=== PATIENT | female | born 1960 | race Caucasian/White ===

== ENCOUNTER 2018-03-25 13:46 | Outpatient (CLI) | payer BC | END 2018-03-25 13:47 | disposition home or self-care (01) | LOC: BICMAMMO 13:46 | PROVIDERS: ATTEND Family Medicine | DX: Z12.31 Encounter for screening mammogram for malignant neoplasm of breast (principal); Z80.3 Family history of malignant neoplasm of breast | CPT/HCPCS: 77063; 77067 ==

== ENCOUNTER 2018-07-16 08:55 | Outpatient (CLI) | payer BC ==
--- NOTE | 2018-07-16 09:44 | RAD ---
ABDOMEN 1 VIEW: HISTORY: M20.0, renal stone. COMPARISON: CT abdomen and pelvis 08/02/17. FINDINGS: There are right upper quadrant surgical clips. No abnormal calcification projecting over the ureters . No abnormal calcifications are seen projecting over the renal shadows. Mild dextroscoliosis. IMPRESSION: 1. No abnormal calcification projecting over the renal shadows. 2. Lumbosacral transitional vertebrae. POS: [facility]
== END 2018-07-16 08:56 | disposition home or self-care (01) ==
LOC: RAD 08:55
PROVIDERS: ATTEND Urology
DX: N20.0 Calculus of kidney (principal)
CPT/HCPCS: 74018

== ENCOUNTER 2018-08-06 12:57 | Outpatient (CLI) | payer BC | END 2018-08-06 12:58 | disposition home or self-care (01) | LOC: BICULT 12:57 | PROVIDERS: ATTEND Urology | DX: N20.0 Calculus of kidney (principal); N28.1 Cyst of kidney, acquired; R93.422 Abnormal radiologic findings on diagnostic imaging of left kidney | CPT/HCPCS: 74018; 76770 ==

== ENCOUNTER 2019-01-16 08:56 | Outpatient (CLI) | payer BC ==
--- NOTE | 2019-01-16 10:34 | RAD ---
SUPINE ABDOMEN: INDICATION: Renal stones. COMPARISON: 07/16/2018. FINDINGS: Scattered stool and gas throughout the colon. Small bowel gas pattern is unremarkable. A faint calc ification in the left pelvis was present on 08/06/2018 and is probably vascular. No other abnormal ca lcification seen. Post cholecystectomy clips noted. Degenerative spine changes with scoliotic curva ture again noted. IMPRESSION: Unremarkable exam. POS: [facility]
== END 2019-01-16 08:57 | disposition home or self-care (01) ==
LOC: BICRAD 08:56
PROVIDERS: ATTEND Urology
DX: N20.0 Calculus of kidney (principal)
CPT/HCPCS: 74018; 81001; 88112

== ENCOUNTER 2019-02-13 11:00 | Outpatient (CLI) | payer BC ==
--- NOTE | 2019-02-13 13:17 | CT ---
CT OF THE ABDOMEN AND PELVIS WITH AND WITHOUT CONTRAST: INDICATION: Gross hematuria. CONTRAST: 70 cc of Isovue 370. FINDINGS: There is a 2 mm nonobstructing calculus within the superior pole of the left kidney which is new. Th ere is a stable 2 mm left mid renal nonobstructing calculus. No hydronephrosis is evident. No gross ureteral calculus is evident. The bladder is largely decompressed. There are multiple small cysts bilaterally. The largest is seen within the right mid kidney measurin g 3.5 cm slightly larger than on a comparison 08/02/2017 where it measured 3.1 cm. The largest cyst w ithin the left kidney is seen within the lower pole measuring 1.1 cm. No gross urothelial lesion is evident within the segmentally opacified renal collecting system. The lung bases are clear. No focal hepatic lesion is evident. The gallbladder is surgically absent. Pancreas, adrenal glands, and spleen appear within normal limits. There is a moderate amount of retained stool within the colon. There is a normal appendix in the rig ht lower quadrant. The uterus is not visualized and may be surgically absent. The rectum and perirectal soft tissues ar e unremarkable. There is dextroscoliosis of the lumbar spine. No acute osseous abnormality is evide nt. IMPRESSION: 1. No solid renal lesion, ureteral calculus, hydronephrosis, or gross urothelial lesion is evident. 2. Bilateral renal cysts. Left nephrolithiasis. 3. Moderate amount of retained stool within the colon. 4. Cholecystectomy. 5. Other chronic findings as above. POS: [facility]
[2019-02-13] MEDS ORDERED: ISOVUE-370 76%-LOCM 1 ML ONE (15:27)
== END 2019-02-13 11:01 | disposition home or self-care (01) ==
LOC: BICCT 11:00
PROVIDERS: ATTEND Urology
DX: R31.0 Gross hematuria (principal); N20.0 Calculus of kidney; N28.1 Cyst of kidney, acquired; K59.00 Constipation, unspecified; M41.9 Scoliosis, unspecified; Z90.49 Acquired absence of other specified parts of digestive tract
CPT/HCPCS: 74178; Q9966

== ENCOUNTER 2019-04-24 15:00 | Outpatient (CLI) | payer BC ==
--- NOTE | 2019-04-24 15:44 | MMO ---
Bilateral MAMMO Bilat Screen [facility]. CLINICAL HISTORY: Patient is 58 years old and is seen for screening. The patient has the following family history of breast cancer: paternal aunt, malignant (generic). The patient has no personal history of cancer. VIEWS: The views performed were: bilateral craniocaudal with tomosynthesis and bilateral mediolateral oblique with tomosynthesis. FILMS COMPARED: The present examination has been compared to prior imaging studies performed at [facility] on 04/15/2008 and 03/25/2018, and at [facility] on 02/03/2001 and 02/12/2001. MAMMOGRAM FINDINGS: The breasts are heterogeneously dense, which could obscure a lesion on mammography. There are no suspicious masses, suspicious calcifications, or new areas of architectural distortion. IMPRESSION: THERE IS NO MAMMOGRAPHIC EVIDENCE OF MALIGNANCY. A ROUTINE FOLLOW-UP MAMMOGRAM IN 1 YEAR IS RECOMMENDED. THE RESULTS OF THIS EXAM WERE SENT TO THE PATIENT. ACR BI-RADS Category 1 - Negative MAMMOGRAPHY NOTE: 1. A negative mammogram report should not delay a biopsy if a dominant of clinically suspicious mass is present. 2. Approximately 10% to 15% of breast cancers are not detected by mammography. 3. Adenosis and dense breasts may obscure an underlying neoplasm.
== END 2019-04-24 15:01 | disposition home or self-care (01) ==
LOC: BICMAMMO 15:00
PROVIDERS: ATTEND Family Medicine
DX: Z12.31 Encounter for screening mammogram for malignant neoplasm of breast (principal); Z80.3 Family history of malignant neoplasm of breast
CPT/HCPCS: 77063; 77067

== ENCOUNTER 2019-07-01 08:55 | Outpatient (CLI) | payer BC ==
[2019-07-01 09:59] LABS: Hemoglobin 13.7 g/dL (12.0-16.0); Mean Corpuscular HGB CONC 34.7 g/dL (32.0-36.0); Mean Corpuscular Hemoglobin 34.7 pg (27.0-31.0); Mean Platelet Volume 7.4 fL (7.4-10.4); Platelet Count 190 thou/uL (130-400); Red Blood Cell (RBC) Count 3.95 mill/uL (4.20-5.40); White Blood Cell (WBC) Count 9.6 thou/uL (4.8-10.8)
[2019-07-01 10:18] LABS: Anion Gap 12 mmol/L (10-20); BUN (Urea Nitrogen) 16 mg/dL (9.8-20.1); Calc. Creatinine Clearance 0 mL/min (70-130); Carbon Dioxide 26 mmol/L (22-29); Chloride 103 mmol/L (98-107); Estimated GFR-MDRD 87; Glucose 89 mg/dL (70-105); Potassium 3.9 mmol/L (3.5-5.1); Sodium 137 mmol/L (136-145)
== END 2019-07-01 08:56 | disposition home or self-care (01) ==
LOC: LABBT 08:55
PROVIDERS: ATTEND Neurological Surgery
DX: Z01.818 Encounter for other preprocedural examination (principal); M43.16 Spondylolisthesis, lumbar region
CPT/HCPCS: 80048; 85027; 93005; 93010

== ENCOUNTER 2019-07-06 07:50 | Day surgery (SDC) | payer BC ==
[2019-07-01 09:11] VITALS: BMI 33.3
[2019-07-06] MEDS ORDERED: Levofloxacin 500 mg/D5W 100 ml Premix Bag ONE (08:57)
[2019-07-06] MEDS ORDERED: Clindamycin/D5W 900 mg/50 ml Premix Bag ONE (08:57)
[2019-07-06] MEDS ORDERED: Sodium Chloride 0.9% 10 ML ONE (10:59)
[2019-07-06] MEDS ORDERED: Fentanyl 100 MCG/2 ML VIAL ONE ×3 (11:09→13:38)
[2019-07-06] MEDS ORDERED: Albuterol Sulfate HFA (OR ONLY) ONE (11:09)
--- NOTE | 2019-07-06 12:40 | OP ---
DATE OF PROCEDURE: 07/06/2019 OVEN STRIPPER: Elham Trujillo PA-C PROCEDURES PERFORMED: L3-L4 laminectomy, posterolateral arthrodesis, pedicle screw instrumentation, L3-L4, demineralized bone matrix, local morselized autograft. DESCRIPTION OF PROCEDURE: The patient was brought to the operating room and intubated. She was rolled in the prone position on gel-filled chest rolls. The previous incision was reopened and the L3-L4 level was identified. We look for modest L3-L4 laminectomy through the scar tissue. We then placed pedicle screws at L3 and L4 on the right and the positioning was confirmed by x-ray. The cookie was secured between the screws, connected by nuts, which were final tightened. The wound was then extensively irrigated and MAC hemostasis was secured. A combination of demineralized bone matrix, local morselized autograft was laid over the lamina and posterolateral surfaces for the purpose of arthrodesis. Vancomycin powder was applied and the wound was then closed in anatomic layers. Job ID: [id number]
[2019-07-06] MEDS ORDERED: HYDROmorphone 2 MG/ML VIAL ONE (12:53)
[2019-07-06] MEDS ORDERED: Ondansetron PF 4 MG/2 ML Vial ONE (14:17)
[2019-07-06] MEDS ORDERED: HYDROcodone/Acetaminophen 5/325 mg Tablet ONE (15:34)
[2019-07-06] MEDS ORDERED: Ketorolac Tromethamine 30 MG/ML VIAL ONE (16:12)
[2019-07-06] MEDS ORDERED: tiZANidine HCl 4 MG TAB ONE (17:17)
== END 2019-07-06 17:58 | disposition home or self-care (01) ==
LOC: SDC 07:50
PROVIDERS: ATTEND Neurological Surgery
PROC: 0SG0071 Fusion of Lumbar Vertebral Joint with Autologous Tissue Substitute, Posterior Approach, Posterior Column, Open Approach (ICD-10-PCS; principal; 2019-07-06)
DX: M43.16 Spondylolisthesis, lumbar region (principal); M48.061 Spinal stenosis, lumbar region without neurogenic claudication; I10 Essential (primary) hypertension; I47.1 Supraventricular tachycardia; E03.9 Hypothyroidism, unspecified; K21.9 Gastro-esophageal reflux disease without esophagitis; M19.90 Unspecified osteoarthritis, unspecified site; F41.9 Anxiety disorder, unspecified; F32.9 Major depressive disorder, single episode, unspecified; Z79.1 Long term (current) use of non-steroidal anti-inflammatories (NSAID); Z79.899 Other long term (current) drug therapy; Z88.0 Allergy status to penicillin; Z88.2 Allergy status to sulfonamides; Z88.5 Allergy status to narcotic agent
CPT/HCPCS: 76000; C1713; C1768; J1170; J1885; J1956; J2405; J3010; J3370; J3490

== ENCOUNTER 2019-07-23 10:34 | Outpatient (CLI) | payer BC ==
--- NOTE | 2019-07-23 11:26 | RAD ---
LUMBAR SPINE 2 VIEWS: INDICATION: Spondylolisthesis. FINDINGS: There is grade I spondylolisthesis involving site of fusion, L4-5 level. Right side pedicle screws o f L4 and L5 with a vertical interconnecting cookie present and there are metallic adithya overlying the midline. There is dextroscoliosis centered about the L3 level. IMPRESSION: Postoperative lumbar spine without acute hardware complication identified. There is grade I spondylo listhesis at the postoperative, L4-5 level. POS: [facility]
== END 2019-07-23 10:35 | disposition home or self-care (01) ==
LOC: TBSIIMAG 10:34
PROVIDERS: ATTEND Neurological Surgery
DX: M43.16 Spondylolisthesis, lumbar region (principal); Z98.890 Other specified postprocedural states
CPT/HCPCS: 72100

== ENCOUNTER 2019-09-03 14:59 | Outpatient (CLI) | payer BC ==
--- NOTE | 2019-09-03 16:31 | RAD ---
EXAM: LUMBAR SPINE TWO VIEWS: 09/03/19 HISTORY: Low back pain. COMPARISON: 07/23/19. FINDINGS: There is some S-shaped scoliosis convexed to the right side at the lower lumbar spine and convexed to the left side at the upper lumbar lower thoracic vertebral column. Laminectomy changes of the lower lumbar spine with right sided pedicle screws stabilizing L4 and L5 with persistent stable anterolist hesis with narrowing at L5-S1 and the S1-S2 lumbarized level. IMPRESSION: Stable appearance. POS: [facility]
== END 2019-09-03 15:00 | disposition home or self-care (01) ==
LOC: TBSIIMAG 14:59
PROVIDERS: ATTEND Neurological Surgery
DX: M54.5 Low back pain (principal)
CPT/HCPCS: 72100

== ENCOUNTER 2019-12-03 10:16 | Outpatient (CLI) | payer BC ==
--- NOTE | 2019-12-03 10:42 | RAD ---
EXAM: 2 views of the right hip HISTORY: Right hip pain COMPARISON: None FINDINGS: 2 views of the right hip shows no evidence of acute fracture or dislocation. No degenerativ e changes are seen. No soft tissue swelling is present. Hardware is seen in the lumbar spine. IMPRESSION: No evidence of acute osseous abnormality.
== END 2019-12-03 10:17 | disposition home or self-care (01) ==
LOC: TBSIIMAG 10:16
PROVIDERS: ATTEND Neurological Surgery
DX: M25.551 Pain in right hip (principal)

== ENCOUNTER 2019-12-31 06:52 | Day surgery (SDC) | payer BC ==
[2019-12-30 11:46] VITALS: BMI 33.3
[2019-12-31 08:06] VITALS: BP 166/64; TEMP 97
[2019-12-31] MEDS ORDERED: FLU VACC QS2019-20(6MOS UP)/PF 60 MCG/0.5 ML SYRINGE IM ONE (09:00)
--- NOTE | 2019-12-31 16:25 | CT ---
CT lumbar spine noncontrast: (CT lumbar myelogram) DATE: 12/31/2019 HISTORY: 59-year-old female with lumbar radiculopathy and low back pain FINDINGS: Mild dilation of left renal collecting system. 1 x 1 mm calculus at a left renal mid to upper pole ca lyx. 1 mm calculus at a left renal upper pole calyx. No calculus identified in proximal and mid left ureter. Distal ureter not included on images. Multilevel degenerative disc disease and degenerative facet disease have significantly worsened since prior MRI of 07/16/2008. Grade 1 spondylolisthesis at one of the levels is new since the prior MRI. [employer] radiograph demonstrates 12 fully formed paired ribs. The next level inferior to that will be designated as L1 for the purposes of this report, and it has a small left accessory rib. Therefore, the last lumbar-type vertebra will be designated as L6. The L6-S1 disc space is fully deve loped. There is an S-shaped curvature of the thoracolumbar spine, with lower thoracic convexity to the left and mid lumbar convexity to the right. Vertebral body heights are maintained. T12-L1: Mild disc space narrowing. Minimal disc bulge. No central or neural foraminal stenosis. Mild to moderate right facet DJD. Mild left facet DJD. L1-2: Chronic grade 1 left lateral subluxation of L1 on L2. Right-sided severe disc space narrowing, vacuum disc phenomenon, endplate osteophytosis, endplate sclerosis, and endplate irregularity. Mild distortion of spinal canal. Mild central spinal canal stenosis. Conus medullaris terminates at this l evel. No significant neural foraminal stenosis. Moderate right facet DJD. Mild to moderate left facet DJD with chronic mild subluxation. L2-3: Mild degenerative disc changes on the left side. Mild disc bulge. No high-grade central stenosi s. No neural foraminal stenosis. Mild bilateral facet DJD. L3-4: Asymmetrically left-sided severe degenerative disc disease due to the concavity of the lateral curvature. Bilateral moderate facet degenerative hypertrophy with thickened ligamentum flavum, and calcification of left ligamentum flavum. Diffuse disc bulge. Moderate central spinal canal stenosis. No right neural foraminal stenosis. Mild left neural foraminal stenosis. L4-5: Unilateral right L4 and L5 pedicle screws. No hardware loosening of the right L4 pedicle screw. Mild lucency around the right L5 pedicle screw. No hardware malpositioning. Very severe bilateral facet DJD with severe bony hypertrophy. Grade 1 anterolisthesis of L4 on L5. Mild disc space narrowin g. Moderate central spinal canal stenosis. No significant right neural foraminal stenosis. Mild left neural foraminal stenosis. L5-L6: Severe disc space narrowing with vacuum disc phenomenon and endplate sclerosis. Bilateral mode rate to severe degenerative facet bony hypertrophy narrows the transverse dimension of the sac bile canal. Midline laminectomy defect results in generous AP dimension of thecal sac. No high-grade bilat eral neural foraminal stenosis. L6-S1: No right neural foraminal stenosis. Large left lateral endplate disc-osteophyte complex protru ding into the left lateral aspect of the prevertebral space severely chronically compresses the exiting left L6 nerve root. Mild bilateral facet DJD. There is soft tissue density material effacing the left lateral recess is a new finding compared to the CT of 05/11/2008, suspicious for left paracentral focal disc herniation impinging on left S1 nerve root. Bilateral dysplastic L6 transverse processes pseudoarticulating with bilateral sacral alae (lumbosacral transitional vertebra type II B). No high-grade central spinal canal stenosis. IMPRESSION: 1.) 6 lumbar type vertebrae. Left accessory rib at L1. Lumbosacral transitional vertebra type II B at L6-S1. 2) high-grade lumbar spondylosis, significantly worse since MRI of 07/16/2008. 3) grade 1 spondylolisthesis at L4-5 stabilized with unilateral right pedicle screws. 4) mild hardware loosening involving the right L5 pedicle screw. 5) mild S-shaped degenerative scoliosis. 6) very severe facet osteoarthrosis at L4-5, followed by L5-6. 7) worst degenerative disc disease is at L1-2, followed by L3-4 and L5-6. 8) chronic significant impingement of exiting left L6 nerve root bilateral osteophytes at L6-S1 at an d just distal to the neural foramen, similar to 2008. 9) status post midline laminectomy at L5-6. And L6-S1. 10) suspected left paracentral and left lateral disc herniation impinging on the left S1 nerve root a t the L6-S1 level. 11) moderate central spinal canal stenosis at L3-4 and L4-5. 12) left nephrolithiasis consisting of a few tiny left renal calculi. 13) mild left hydronephrosis. The distal ureters are not included on this scan.
--- NOTE | 2019-12-31 17:33 | RAD ---
Myelogram lumbar: DATE: 12/31/2019 HISTORY: 59-year-old female with low back pain and lumbar radiculopathy. TECHNIQUE: Signed informed consent obtained. Patient placed prone on fluoroscopy table. Skin of lower back prepa red and draped in usual sterile fashion. 25-gauge needle used to apply buffered lidocaine superficially and deeply. 22-gauge spinal needle advanced at midline through laminectomy defect at lo wer lumbar spine, L5-6. Total of 10 mL Isovue-M 200 injected intrathecally under brief, intermittent fluoroscopy. Needle removed. Patient tolerated procedure well. No complications. Patient was taken to CT. FINDINGS: 6 lumbar type vertebrae. The lateral left L1 accessory rib. Lumbosacral transitional vertebra type II B involving L6-S1. Unilateral right pedicle screws at L4 and L5 stabilizing a grade 1 anterolisthesis of L4 on L5. Midline laminectomy defect at L5-6. Lateral curvature of lumbar spine. H igh-grade degenerative disc disease at L1-2 and L5-6, and on the left at L3-4. IMPRESSION: 1. Successful lumbar myelogram. 2. See separate report of subsequent CT lumbar myelogram. 3. High-grade lumbar spondylosis..
== END 2019-12-31 10:10 | disposition home or self-care (01) ==
LOC: RAD 06:52
PROVIDERS: ATTEND Physician Assistant
PROC: B02B1ZZ Computerized Tomography (CT Scan) of Spinal Cord using Low Osmolar Contrast (ICD-10-PCS; principal; 2019-12-31)
DX: M47.26 Other spondylosis with radiculopathy, lumbar region (principal); M43.16 Spondylolisthesis, lumbar region; M41.56 Other secondary scoliosis, lumbar region; M51.16 Intervertebral disc disorders with radiculopathy, lumbar region; M48.061 Spinal stenosis, lumbar region without neurogenic claudication; M46.1 Sacroiliitis, not elsewhere classified; N13.2 Hydronephrosis with renal and ureteral calculous obstruction; J45.909 Unspecified asthma, uncomplicated; I10 Essential (primary) hypertension; F41.9 Anxiety disorder, unspecified; F32.9 Major depressive disorder, single episode, unspecified; G25.81 Restless legs syndrome; E05.00 Thyrotoxicosis with diffuse goiter without thyrotoxic crisis or storm; Z87.891 Personal history of nicotine dependence; Z79.1 Long term (current) use of non-steroidal anti-inflammatories (NSAID); Z79.899 Other long term (current) drug therapy; Z88.0 Allergy status to penicillin; Z88.2 Allergy status to sulfonamides; Z88.5 Allergy status to narcotic agent; Z98.1 Arthrodesis status
CPT/HCPCS: 62304; 72132

== ENCOUNTER 2020-10-10 10:43 | Outpatient (CLI) | payer BC ==
--- NOTE | 2020-10-10 11:26 | MMO ---
Bilateral MAMMO Bilat Screen [facility]. CLINICAL HISTORY: Patient is 60 years old and is seen for screening. The patient has the following family history of breast cancer: paternal aunt, malignant (generic). The patient has no personal history of cancer. VIEWS: The views performed were: bilateral craniocaudal with tomosynthesis and bilateral mediolateral oblique with tomosynthesis. FILMS COMPARED: The present examination has been compared to prior imaging studies performed at [facility] on 04/15/2008, 03/25/2018 and 04/24/2019, and at [facility] on 02/12/2001. This study has been interpreted with the assistance of computer-aided detection. MAMMOGRAM FINDINGS: The breasts are heterogeneously dense, which could obscure a lesion on mammography. There are stable benign appearing calcifications seen in both breasts. There are no suspicious masses, suspicious calcifications, or new areas of architectural distortion. IMPRESSION: THERE IS NO MAMMOGRAPHIC EVIDENCE OF MALIGNANCY. A ROUTINE FOLLOW-UP MAMMOGRAM IN 1 YEAR IS RECOMMENDED. THE RESULTS OF THIS EXAM WERE SENT TO THE PATIENT. ACR BI-RADS Category 2 - Benign finding MAMMOGRAPHY NOTE: 1. A negative mammogram report should not delay a biopsy if a dominant of clinically suspicious mass is present. 2. Approximately 10% to 15% of breast cancers are not detected by mammography. 3. Adenosis and dense breasts may obscure an underlying neoplasm. Reported by: RED TATE MD Electonically Signed: [id number]
== END 2020-10-10 10:44 | disposition home or self-care (01) ==
LOC: BICMAMMO 10:43
PROVIDERS: ATTEND Family Medicine
DX: Z12.31 Encounter for screening mammogram for malignant neoplasm of breast (principal); Z80.3 Family history of malignant neoplasm of breast
CPT/HCPCS: 77063; 77067

== ENCOUNTER 2021-05-25 08:17 | Outpatient (CLI) | payer BC | END 2021-05-25 08:18 | disposition home or self-care (01) | LOC: BICMRI 08:17 | PROVIDERS: ATTEND Transplant Surgery | DX: M54.2 Cervicalgia (principal); G89.29 Other chronic pain; R26.89 Other abnormalities of gait and mobility; R29.6 Repeated falls; M47.814 Spondylosis without myelopathy or radiculopathy, thoracic region; M48.04 Spinal stenosis, thoracic region; R93.7 Abnormal findings on diagnostic imaging of other parts of musculoskeletal system | CPT/HCPCS: 72141; 72146 ==

== ENCOUNTER 2023-01-03 13:53 | Outpatient (CLI) | payer BC | END 2023-01-03 13:54 | disposition home or self-care (01) | LOC: BICMAMMO 13:53 | PROVIDERS: ATTEND Family Medicine | DX: Z13.820 Encounter for screening for osteoporosis (principal); Z78.0 Asymptomatic menopausal state | CPT/HCPCS: 77080 ==

== ENCOUNTER 2024-08-11 10:39 | Outpatient (CLI) | payer MEDICARE, BC | END 2024-08-11 10:40 | disposition home or self-care (01) | LOC: BICRAD 10:39 | PROVIDERS: ATTEND Neurological Surgery | DX: M54.6 Pain in thoracic spine (principal); M47.12 Other spondylosis with myelopathy, cervical region; M47.814 Spondylosis without myelopathy or radiculopathy, thoracic region; Z98.1 Arthrodesis status | CPT/HCPCS: 72040; 72070 ==

== ENCOUNTER 2024-10-12 08:56 | Outpatient (CLI) | payer MEDICARE, BC | END 2024-10-12 08:57 | disposition home or self-care (01) | LOC: BICMAMMO 08:56 | PROVIDERS: ATTEND Family Medicine | DX: Z12.31 Encounter for screening mammogram for malignant neoplasm of breast (principal); Z80.3 Family history of malignant neoplasm of breast | CPT/HCPCS: 77063; 77067 ==

== ENCOUNTER 2025-08-03 11:00 | Inpatient (IN) | payer MEDICARE, BC ==
[2025-08-03 11:33] VITALS: BMI 28.3
[2025-08-09] MEDS ORDERED: Thrombin 5000 UNITS/5 ML VIAL ONE (06:34)
[2025-08-09] MEDS ORDERED: HYDROcodone/Acetaminophen 10/325 mg Tablet PO PRN (06:42)
[2025-08-09] MEDS ORDERED: Mag-Al 1200 mg/1200 mg/30 ML UDCUP PO PRN (06:42)
[2025-08-09] MEDS ORDERED: diphenhydrAMINE 25 MG CAP PO PRN (06:42)
[2025-08-09] MEDS ORDERED: Milk Of Magnesia 30 ML UDCUP PO PRN (06:42)
[2025-08-09] MEDS ORDERED: Ondansetron PF 4 MG/2 ML Vial IVP PRN (06:42)
[2025-08-09] MEDS ORDERED: Cyclobenzaprine 10 MG TAB PO PRN (06:42)
[2025-08-09] MEDS ORDERED: ALPRAZolam 0.25 MG TAB PO PRN (06:47)
[2025-08-09] MEDS ORDERED: Albuterol 200 PUFF INH INH PRN (06:47)
[2025-08-09] MEDS ORDERED: Ketamine In 0.9 % NaCl 50 MG/5 ML SYRINGE ONE (06:54)
[2025-08-09] MEDS ORDERED: PROPOFOL 20 ML ONE ×2 (06:54→08:21)
[2025-08-09] MEDS ORDERED: Rocuronium Bromide 10 MG/ML (10ML VIAL) ONE (06:54)
[2025-08-09] MEDS ORDERED: PHENYLEPHRINE-NS 100 MCG/ML 10 ML SYRINGE ONE (07:33)
[2025-08-09] MEDS ORDERED: SUGAMMADEX SODIUM 200 MG/2 ML VIAL ONE (07:34)
[2025-08-09] MEDS ORDERED: Ondansetron PF 4 MG/2 ML Vial ONE (07:34)
[2025-08-09] MEDS ORDERED: HYDROmorphone 2 MG/ML VIAL ONE (08:22)
[2025-08-09] MEDS: Gabapentin 300 MG CAP PO SCH (11:44)
[2025-08-09] MEDS: Atenolol 50 MG TAB PO SCH (11:44)
[2025-08-09] MEDS: Clindamycin/D5W 900 MG in Premix 1 BAG IVPB SCH (15:18)
[2025-08-09] MEDS: HYDROcodone/Acetaminophen 10/325 mg Tablet PO PRN (16:08)
[2025-08-09] MEDS: Pantoprazole 40 MG DR.TAB PO SCH (20:32)
[2025-08-10] MEDS: Levothyroxine 175 MCG TAB PO SCH (05:38)
[2025-08-10 19:11] VITALS: BP 107/67; TEMP 97.9
== END 2025-08-10 19:11 | DRG 451 ==
LOC: SURG A 08-09 06:01 → EDSTATUS 08-09 11:00 → MSONC 08-09 11:27
PROVIDERS: ADMIT Neurological Surgery; ATTEND Neurological Surgery
PROC: 0SG0071 Fusion of Lumbar Vertebral Joint with Autologous Tissue Substitute, Posterior Approach, Posterior Column, Open Approach (ICD-10-PCS; principal; 2025-08-09)
PROC: 00NY0ZZ Release Lumbar Spinal Cord, Open Approach (ICD-10-PCS; 2025-08-09)
PROC: 3E0U0GB Introduction of Recombinant Bone Morphogenetic Protein into Joints, Open Approach (ICD-10-PCS; 2025-08-09)
DX: M48.062 Spinal stenosis, lumbar region with neurogenic claudication (principal); M41.9 Scoliosis, unspecified; I10 Essential (primary) hypertension; E78.5 Hyperlipidemia, unspecified; J45.909 Unspecified asthma, uncomplicated; G89.29 Other chronic pain; Z88.2 Allergy status to sulfonamides; Z88.8 Allergy status to other drugs, medicaments and biological substances; Z79.899 Other long term (current) drug therapy
CPT/HCPCS: C1713; C1889; J1100; J1171; J2704; J3010; J3373; J3490; J7030

== ENCOUNTER 2025-08-03 11:12 | Outpatient (CLI) | payer MEDICARE, BC ==
[2025-08-03 12:14] LABS: #Basophils 0.03 10x3/uL (0.0-0.2); #Eosinophils 0.06 10x3/uL (0.0-0.7); #Monocytes 0.49 10x3/uL (0.11-0.59); #Neutrophils 2.81 10x3/uL (1.40-6.50); %Basophils 0.6 % (0.0-1.0); %Eosinophils 1.2 % (0.0-10.0); %Lymphocytes 30.6 % (21.0-51.0); %Monocytes 10.0 % (0.0-10.0); %Neutrophils 57.4 % (42.0-75.0); Hematocrit 37.4 % (36.0-47.0); Hemoglobin 12.2 g/dL (12.0-16.0); Mean Corpuscular Hemoglobin 34.2 pg (27.0-31.0); Mean Corpuscular Volume 104.8 fL (78.0-98.0); Platelet Count 145 10x3/uL (130-400); Red Blood Cell (RBC) Count 3.57 mill/uL (4.20-5.40); White Blood Cell (WBC) Count 4.90 10x3/uL (4.8-10.8)
[2025-08-03 12:29] LABS: Anion Gap 12 mmol/L (10-20); BUN (Urea Nitrogen) 13 mg/dL (9.8-20.1); Calc. Creatinine Clearance 0 mL/min (70-130); Calcium 8.9 mg/dL (7.8-10.44); Carbon Dioxide 31 mmol/L (23-31); Chloride 105 mmol/L (98-107); Glucose 107 mg/dL (80-115); Potassium 4.0 mmol/L (3.5-5.1); Sodium 144 mmol/L (136-145)
== END 2025-08-03 11:13 | disposition home or self-care (01) ==
LOC: LABBT 11:12
PROVIDERS: ATTEND Neurological Surgery
DX: Z01.818 Encounter for other preprocedural examination (principal); M48.062 Spinal stenosis, lumbar region with neurogenic claudication
CPT/HCPCS: 80048; 85025; 93005; 93010